=== PATIENT | female | born 2000 | race Hispanic/Latino ===

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

== ENCOUNTER 2018-10-11 15:52 | Emergency (ER) | payer MEDICAID ==
[~2018-10-11] VITALS: Ht 154.9 cm; Wt 75.0 kg
[~2018-10-11 15:52] MED LIST changes: +CIPROFLOXACN500 MG PO; +MOTRIN800 MG PO
[2018-10-11 16:55] VITALS: BP 110/65
== END 2018-10-11 16:55 | disposition home or self-care (01) ==
LOC: ED 15:52
DX: M25.562 Pain in left knee (principal); M79.18 Myalgia, other site
CPT/HCPCS: L1830

== ENCOUNTER 2019-02-06 21:13 | Emergency (ER) | payer OTHER ==
[~2019-02-06] VITALS: Ht 154.9 cm; Wt 76.8 kg
[2019-02-06] MEDS ORDERED: VOLTAREN - GENE75 MG PO (23:21)
[2019-02-06 23:35] VITALS: BP 118/67
== END 2019-02-06 23:37 | disposition home or self-care (01) ==
LOC: ED 21:13
DX: M54.12 Radiculopathy, cervical region (principal); R07.89 Other chest pain; F17.210 Nicotine dependence, cigarettes, uncomplicated

== ENCOUNTER 2019-05-08 18:38 | Emergency (ER) | payer OTHER ==
[~2019-05-08] VITALS: Ht 154.9 cm; Wt 77.3 kg
[~2019-05-08 18:38] MED LIST changes: +VOLTAREN - GENE75 MG PO
[2019-05-08 19:40] LABS: URINE BILIRUBIN - DIPSTICK NEGATIVE (NEGATIVE); URINE BLOOD DIPSTICK NEGATIVE (NEGATIVE); URINE COLOR YELLOW; URINE GLUCOSE - DIPSTICK NEGATIVE (NEGATIVE); URINE KETONE NEGATIVE (NEGATIVE); URINE LEUK ESTERASE NEGATIVE (NEGATIVE); URINE NITRITE - DIPSTICK NEGATIVE (Negative); URINE PROTEIN - DIPSTICK TRACE mg/dL (NEG-TRACE); URINE SPECIFIC GRAVITY 1.015; URINE UROBILINOGEN - DIPSTICK 0.2 E.U./dL (0.2)
[2019-05-08 19:51] LABS: HEMATOCRIT 38.9 % (37.0-47.0); IMMATURE GRANULOCYTES 0.4 % (0.0-5.0); MEAN CELL VOLUME 94.2 fL CALC (80.0-100.0); MEAN CORPUSCULAR HGB 31.5 pG CALC (26.0-32.0); MEAN CORPUSCULAR HGB CONC 33.4 g/L CALC (32.0-36.0); NEUT# 5.02 thou/uL (2.00-7.15); RED BLOOD COUNT 4.13 mill/uL (4.20-5.60)
[2019-05-08 19:53] LABS: BARBITURATES NEGATIVE (NEGATIVE); COCAINE NEGATIVE (NEGATIVE); METHADONE NEGATIVE (NEGATIVE); OXCYCODONE NEGATIVE (NEGATIVE); TETRAHYDROCANNABIONOL NEGATIVE (NEGATIVE); TRICYLIC ANTIDEPRESSANTS NEGATIVE (NEGATIVE)
[2019-05-08 20:08] LABS: ALBUMIN 4.4 g/dL (3.2-5.0); ALKALINE PHOSPHATASE 82 u/l (38-126); ANION GAP 14 (6-22 (CALC)); BILIRUBIN, TOTAL 0.4 mg/dL (0.0-1.4); BUN 10 mg/dL (7-17); BUN/CREATININE RATIO 14 (12-20 (CALC)); CARBON DIOXIDE 27 mmol/l (22-30); CHLORIDE 102 mmol/l (95-108); CREATININE 0.7 mg/dL (0.5-1.0); GFR > 60 ML/MIN (>=60 (CALC)); GFR FOR AFR.AMER. > 60 ML/MIN (>=60 (CALC)); POTASSIUM 3.6 mmol/l (3.5-5.1); SGOT/AST 28 u/l (14-36); SODIUM 140 mmol/l (137-146); TOTAL PROTEIN 7.4 g/dL (6.3-8.2)
[2019-05-08 20:09] LABS: ETHYL ALCOHOL 0 mg/dl (0-30)
[2019-05-08 20:33] VITALS: BP 114/70
== END 2019-05-08 20:30 | disposition designated cancer center or children's hospital (05) ==
LOC: ED 18:38
PROVIDERS: Emergency Medicine
DX: R45.851 Suicidal ideations (principal); F32.9 Major depressive disorder, single episode, unspecified

== ENCOUNTER 2019-09-16 02:35 | Emergency (ER) | payer OTHER ==
[~2019-09-16] VITALS: Ht 154.9 cm; Wt 80.2 kg
[2019-09-16] MEDS ORDERED: LEXAPRO10 MG PO (02:52)
[2019-09-16 03:18] LABS: HEMATOCRIT 38.1 % (37.0-47.0); HEMOGLOBIN 12.6 g/dl (12.0-16.0); IMMATURE GRANULOCYTES 0.3 % (0.0-5.0); MEAN CELL VOLUME 94.3 fL CALC (80.0-100.0); MEAN CORPUSCULAR HGB 31.2 pG CALC (26.0-32.0); MEAN CORPUSCULAR HGB CONC 33.1 g/L CALC (32.0-36.0); NEUT# 4.08 thou/uL (2.00-7.15); RED BLOOD COUNT 4.04 mill/uL (4.20-5.60); RED CELL DISTRI WIDTH 14.3 % (11.5-15.5)
[2019-09-16] MEDS ORDERED: ALLEGRA-D 2424 HOUR PO (04:04)
[2019-09-16 04:06] VITALS: BP 143/77
== END 2019-09-16 04:06 | disposition home or self-care (01) ==
LOC: ED 02:35
PROVIDERS: Family Medicine
DX: J30.9 Allergic rhinitis, unspecified (principal)

== ENCOUNTER 2019-12-26 07:38 | Emergency (ER) | payer OTHER ==
[~2019-12-26 07:38] MED LIST changes: +ALLEGRA-D 2424 HOUR PO; +LEXAPRO10 MG PO
[2019-12-26] MEDS ORDERED: AMOXICILLIN500 M2 PO (07:59)
[2019-12-26 08:10] VITALS: BP 105/64
== END 2019-12-26 08:10 | disposition home or self-care (01) ==
LOC: ED 07:38
DX: J02.9 Acute pharyngitis, unspecified (principal); F17.200 Nicotine dependence, unspecified, uncomplicated

== ENCOUNTER 2021-11-03 19:17 | Emergency (ER) | payer OTHER ==
[~2021-11-03] VITALS: Ht 152.4 cm; Wt 87.0 kg
[~2021-11-03 19:17] MED LIST changes: +AMOXICILLIN500 M2 PO
[2021-11-03 22:42] VITALS: BP 134/56
== END 2021-11-03 22:42 | disposition home or self-care (01) ==
LOC: ED 19:17
DX: B34.9 Viral infection, unspecified (principal); F32.A Depression, unspecified; Z20.822 Contact with and (suspected) exposure to COVID-19

== ENCOUNTER 2022-05-01 11:37 | Emergency (ER) | payer OTHER ==
[~2022-05-01] VITALS: Ht 152.4 cm; Wt 91.0 kg
[2022-05-01] MEDS ORDERED: PRENATABS FA PO (11:56)
[2022-05-01 12:05] LABS: HEMATOCRIT 36.3 % (37.0-47.0); HEMOGLOBIN 11.9 g/dl (12.0-16.0); IMMATURE GRANULOCYTES 0.7 % (0.0-5.0); MEAN CORPUSCULAR HGB 31.2 pG CALC (26.0-32.0); MEAN CORPUSCULAR HGB CONC 32.8 g/dL CAL (32.0-36.0); NEUT# 5.18 thou/uL (2.00-7.15); RED BLOOD COUNT 3.82 mill/uL (4.20-5.60)
[2022-05-01 12:20] LABS: ALBUMIN 3.9 g/dL (3.2-5.0); ALKALINE PHOSPHATASE 68 u/l (38-126); ANION GAP 12 (6-22 (CALC)); BILIRUBIN, TOTAL 0.4 mg/dL (0.0-1.4); BUN 5 mg/dL (7-17); BUN/CREATININE RATIO 13 (12-20 (CALC)); CARBON DIOXIDE 23 mmol/l (22-30); CHLORIDE 104 mmol/l (95-108); CREATININE 0.4 mg/dL (0.5-1.0); GFR FOR AFR.AMER. > 60 ML/MIN (>=60 (CALC)); GFR OTHER RACES > 60 ML/MIN (>=60 (CALC)); POTASSIUM 3.8 mmol/l (3.5-5.1); SGOT/AST 29 u/l (14-36); SODIUM 135 mmol/l (137-146)
[2022-05-01 13:53] LABS: URINE BILIRUBIN - DIPSTICK NEGATIVE (NEGATIVE); URINE BLOOD DIPSTICK NEGATIVE (NEGATIVE); URINE COLOR YELLOW; URINE GLUCOSE - DIPSTICK NEGATIVE (NEGATIVE); URINE KETONE 15 mg/dL (NEGATIVE); URINE LEUK ESTERASE NEGATIVE (NEGATIVE); URINE PROTEIN - DIPSTICK NEGATIVE (NEG-TRACE); URINE SPECIFIC GRAVITY 1.015; URINE UROBILINOGEN - DIPSTICK 0.2 E.U./dL (0.2)
[2022-05-01 13:56] LABS: URINE NITRITE - DIPSTICK NEGATIVE (Negative)
[2022-05-01 14:44] VITALS: BP 117/73
== END 2022-05-01 14:46 | disposition home or self-care (01) ==
LOC: ED 11:37
PROVIDERS: Family Medicine
DX: O26.892 Other specified pregnancy related conditions, second trimester (principal); R42 Dizziness and giddiness; R51.9 Headache, unspecified; Z3A.26 26 weeks gestation of pregnancy; Z20.822 Contact with and (suspected) exposure to COVID-19

== ENCOUNTER → 2022-07-26 | Emergency (ER) | payer OTHER ==
[~2022-07-26] VITALS: Ht 152.4 cm; Wt 93.0 kg
[2022-07-26] VITALS (11 sets, daily range): BP systolic 78–121; BP diastolic 35–76
[~2022-07-26] MED LIST changes: +PRENATABS FA PO
== END ==
LOC: ED 14:25
DX: Z34.83 Encounter for supervision of other normal pregnancy, third trimester (principal); Z3A.39 39 weeks gestation of pregnancy

== ENCOUNTER 2022-10-17 10:59 | Emergency (ER) | payer OTHER ==
[2022-10-17] VITALS (8 sets, daily range): BP systolic 95–121; BP diastolic 60–76
[~2022-10-17] VITALS: Ht 152.4 cm; Wt 86.1 kg
[2022-10-17 13:13] LABS: BASO% 0.3 % (0-3); EOS% 3.9 % (0-8); HEMATOCRIT 45.2 % (37.0-47.0); IMMATURE GRANULOCYTES 0.1 % (0.0-5.0); LYMPH% 17.2 % (15-41); MEAN CELL VOLUME 89.7 fL CALC (80.0-100.0); MEAN CORPUSCULAR HGB 29.8 pG CALC (26.0-32.0); MEAN CORPUSCULAR HGB CONC 33.2 g/dL CAL (32.0-36.0); MONO% 6.9 % (2-13); NEUT# 7.81 thou/uL (2.00-7.15); NEUT% 71.6 % (42-76); RED BLOOD COUNT 5.04 mill/uL (4.20-5.60); RED CELL DISTRI WIDTH 16.6 % (11.5-15.5)
[2022-10-17 13:30] LABS: ALKALINE PHOSPHATASE 78 u/l (38-126); ANION GAP 16 (6-22 (CALC)); BUN 14 mg/dL (7-17); BUN/CREATININE RATIO 20 (12-20 (CALC)); CARBON DIOXIDE 25 mmol/l (22-30); CHLORIDE 102 mmol/l (95-108); CREATININE 0.7 mg/dL (0.5-1.0); GFR FOR AFR.AMER. > 60 ML/MIN (>=60 (CALC)); GFR OTHER RACES > 60 ML/MIN (>=60 (CALC)); LIPASE 103 u/l (23-300); MAGNESIUM 1.7 mg/dL (1.6-2.3); POTASSIUM 3.9 mmol/l (3.5-5.1); SODIUM 140 mmol/l (137-146)
[2022-10-17 13:35] LABS: ALBUMIN 5.1 g/dL (3.2-5.0); BILIRUBIN, TOTAL 0.6 mg/dL (0.0-1.4); SGOT/AST 72 u/l (14-36); TOTAL PROTEIN 9.3 g/dL (6.3-8.2)
[2022-10-17] MEDS ORDERED: LEVOCETIRIZINE D5 MG PO (15:06)
[2022-10-17] MEDS ORDERED: INDERAL 20MG TA20 MG PO (15:06)
[2022-10-17] MEDS ORDERED: BENZONATATE150 MG PO (15:06)
== END 2022-10-17 16:10 | disposition home or self-care (01) ==
LOC: ED 10:59
PROVIDERS: Nurse Practitioner
DX: R05.9 Cough, unspecified (principal); E05.90 Thyrotoxicosis, unspecified without thyrotoxic crisis or storm; Z90.79 Acquired absence of other genital organ(s); Z20.822 Contact with and (suspected) exposure to COVID-19

== ENCOUNTER 2022-11-28 18:57 | Emergency (ER) | payer OTHER ==
[2022-11-28] VITALS (13 sets, daily range): BP systolic 91–122; BP diastolic 53–78
[~2022-11-28] VITALS: Ht 152.4 cm; Wt 86.0 kg
[~2022-11-28 18:57] MED LIST changes: +BENZONATATE150 MG PO; +INDERAL 20MG TA20 MG PO; +LEVOCETIRIZINE D5 MG PO
[2022-11-28 19:50] LABS: BASO% 0.2 % (0-3); EOS% 9.3 % (0-8); HEMATOCRIT 43.3 % (37.0-47.0); HEMOGLOBIN 14.2 g/dl (12.0-16.0); LYMPH% 35.8 % (15-41); MEAN CELL VOLUME 91.9 fL CALC (80.0-100.0); MEAN CORPUSCULAR HGB 30.1 pG CALC (26.0-32.0); MEAN CORPUSCULAR HGB CONC 32.8 g/dL CAL (32.0-36.0); MONO% 9.8 % (2-13); NEUT# 2.07 thou/uL (2.00-7.15); NEUT% 44.9 % (42-76); RED BLOOD COUNT 4.71 mill/uL (4.20-5.60); RED CELL DISTRI WIDTH 16.6 % (11.5-15.5)
[2022-11-28 20:01] LABS: ALBUMIN 4.8 g/dL (3.2-5.0); ALKALINE PHOSPHATASE 60 u/l (38-126); ANION GAP 14 (6-22 (CALC)); BILIRUBIN, TOTAL 0.6 mg/dL (0.02-1.3); BUN 10 mg/dL (7-17); BUN/CREATININE RATIO 15 (12-20 (CALC)); CARBON DIOXIDE 23 mmol/l (22-30); CHLORIDE 105 mmol/l (95-108); CREATININE 0.7 mg/dL (0.5-1.0); GFR FOR AFR.AMER. > 60 ML/MIN (>=60 (CALC)); GFR OTHER RACES > 60 ML/MIN (>=60 (CALC)); LIPASE 55 u/l (23-300); POTASSIUM 3.6 mmol/l (3.5-5.1); SGOT/AST 63 u/l (14-36); SODIUM 138 mmol/l (137-146); TOTAL PROTEIN 8.1 g/dL (6.3-8.2)
[2022-11-28 20:18] LABS: URINE BILIRUBIN - DIPSTICK NEGATIVE (NEGATIVE); URINE BLOOD DIPSTICK NEGATIVE (NEGATIVE); URINE COLOR YELLOW; URINE GLUCOSE - DIPSTICK NEGATIVE (NEGATIVE); URINE KETONE TRACE mg/dL (NEGATIVE); URINE LEUK ESTERASE NEGATIVE (NEGATIVE); URINE PROTEIN - DIPSTICK TRACE mg/dL (NEG-TRACE); URINE SPECIFIC GRAVITY 1.025; URINE UROBILINOGEN - DIPSTICK 0.2 E.U./dL (0.2)
[2022-11-28 20:21] LABS: URINE NITRITE - DIPSTICK NEGATIVE (Negative)
[2022-11-28] MEDS ORDERED: NAPROXEN500 MG PO (21:58)
== END 2022-11-28 22:22 | disposition home or self-care (01) ==
LOC: ED 18:57
PROVIDERS: Nurse Practitioner
DX: R10.31 Right lower quadrant pain (principal); M54.50 Low back pain, unspecified; F32.A Depression, unspecified

== ENCOUNTER 2024-12-13 11:00 | Emergency (ER) | payer SELFPAY ==
[~2024-12-13] VITALS: Ht 152.4 cm; Wt 98.0 kg
[2024-12-13] VITALS (8 sets, daily range): BP systolic 87–111; BP diastolic 57–73
[~2024-12-13 11:00] MED LIST changes: +NAPROXEN500 MG PO
[2024-12-13] MEDS ORDERED: TAM75CAP PO (12:09)
== END 2024-12-13 12:25 | disposition home or self-care (01) | DRG 195 ==
LOC: ED 11:00
DX: J10.1 Influenza due to other identified influenza virus with other respiratory manifestations (principal); F32.A Depression, unspecified; Z20.822 Contact with and (suspected) exposure to COVID-19